=== PATIENT | female | born 1985 | race Caucasian/White ===

== ENCOUNTER 2017-02-19 17:26 | Emergency (ER) | payer OTHER ==
[~2017-02-19] VITALS: Ht 170.2 cm; Wt 59.0 kg
[2017-02-19 17:26] VITALS: BP 106/35
[2017-02-19] MEDS ORDERED: HYDROCODONE/APAP 5/325MG 1 EACH TABLET ONE (19:27)
[2017-02-19] MEDS ORDERED: HYDROCODONE/APAP 5/325MG 1 EACH TABLET PO ONE (19:30)
== END 2017-02-19 19:53 | disposition home or self-care (01) ==
LOC: ER 17:28
DX: S83.8X2A Sprain of other specified parts of left knee, initial encounter (principal); F10.20 Alcohol dependence, uncomplicated; W10.8XXA Fall (on) (from) other stairs and steps, initial encounter; Y93.89 Activity, other specified; Y92.89 Other specified places as the place of occurrence of the external cause; Y99.8 Other external cause status
CPT/HCPCS: 73564; 99284; A4606; Z7610

== ENCOUNTER 2017-06-11 08:13 | Emergency (ER) | payer OTHER ==
[~2017-06-11] VITALS: Ht 170.2 cm; Wt 59.0 kg
[2017-06-11 08:28] VITALS: BP 111/64
== END 2017-06-11 08:51 | disposition home or self-care (01) ==
LOC: ER 08:15
DX: T78.40XA Allergy, unspecified, initial encounter (principal); Y92.89 Other specified places as the place of occurrence of the external cause
CPT/HCPCS: A4606; Z7610

== ENCOUNTER 2018-10-25 12:55 | Emergency (ER) | payer OTHER ==
[~2018-10-25] VITALS: Ht 170.2 cm; Wt 61.2 kg
[2018-10-25 13:03] VITALS: BP 119/64
--- NOTE | 2018-10-25 13:24 | NUR ---
SEEN AND EXAMINED BY SHERIDAN LEMUS
[2018-10-25] MEDS ORDERED: DIAZEPAM 5 MG TABLET ONE (13:30)
[2018-10-25] MEDS ORDERED: DIAZEPAM 5 MG TABLET PO ONE (13:30)
--- NOTE | 2018-10-25 13:33 | NUR ---
TECH AT BEDSIDE FOR US.
--- NOTE | 2018-10-25 14:10 | NUR ---
Patient discharged to home in stable condition. Written and verbal after care instructions given. Patient verbalizes understanding of instruction.
== END 2018-10-25 14:11 | disposition home or self-care (01) ==
LOC: ER 12:57
DX: M79.651 Pain in right thigh (principal); F17.200 Nicotine dependence, unspecified, uncomplicated
CPT/HCPCS: 93971-TC; A6402

== ENCOUNTER 2019-02-15 11:18 | Emergency (ER) | payer OTHER ==
[~2019-02-15] VITALS: Ht 170.2 cm; Wt 67.6 kg
--- NOTE | 2019-02-15 11:35 | NUR ---
C/O LEFT HIP PAIN FOR 1 1/2 WEEKS, 04/07 PS, DENIES INJURY OR TRAUMA. PAIN ON AMBULATION. DENIES WEAKNESS, DIZZINESS. NO ACUTE DISTRESS NOTED, NO OTHER COMPLAINTS AT THIS TIME. PT MADE COMFORTABLE. READY FOR EVAL.
[2019-02-15] MEDS ORDERED: KETOROLAC TROMETHAMINE INJ 60 MG/2 ML VIAL IM ONE ×2 (11:37→12:00)
--- NOTE | 2019-02-15 11:57 | NUR ---
XRAY AT BEDSIDE
[2019-02-15 12:57] VITALS: BP 120/58
--- NOTE | 2019-02-15 12:57 | NUR ---
Patient discharged to home in stable condition. Written and verbal after care instructions given. Patient verbalizes understanding of instruction. AMBULATORY STEADY GAIT
== END 2019-02-15 12:58 | disposition home or self-care (01) ==
LOC: ER 11:18
DX: S76.012A Strain of muscle, fascia and tendon of left hip, initial encounter (principal); F17.200 Nicotine dependence, unspecified, uncomplicated; X58.XXXA Exposure to other specified factors, initial encounter; Y93.89 Activity, other specified; Y92.89 Other specified places as the place of occurrence of the external cause; Y99.8 Other external cause status
CPT/HCPCS: 73503; 84703; 96372; 99284; J1885; 73502

== ENCOUNTER 2020-12-10 03:45 | Emergency (ER) | payer OTHER ==
[~2020-12-10] VITALS: Ht 167.6 cm; Wt 67.6 kg
[2020-12-10 03:46] VITALS: BP 131/81
--- NOTE | 2020-12-10 04:38 | NUR ---
XRAY AT BEDSIDE
--- NOTE | 2020-12-10 05:01 | NUR ---
CALLED LEANDRA REGARDING XRAY
--- NOTE | 2020-12-10 05:32 | NUR ---
CALLED LEANDRA TO FOLLOW UP REGARDING READ FOR IMAGING.
--- NOTE | 2020-12-10 05:40 | NUR ---
Patient discharged in custody in stable condition. Written and verbal after care instructions given. Patient verbalizes understanding of instruction.
== END 2020-12-10 05:44 ==
LOC: ER 03:46
DX: R07.81 Pleurodynia (principal); Y08.89XA Assault by other specified means, initial encounter; Y93.89 Activity, other specified; Y92.89 Other specified places as the place of occurrence of the external cause; Y99.8 Other external cause status
CPT/HCPCS: 71100-TC

== ENCOUNTER 2021-04-19 15:04 | Emergency (ER) | payer OTHER ==
[~2021-04-19] VITALS: Ht 170.2 cm; Wt 61.2 kg
--- NOTE | 2021-04-19 15:29 | NUR ---
Frankie thomas in [facility] - 04/19/21 at 1612 by ELFEGO PT BIBS EPIGASTRIC PAIN,NAUSEA AND DIARRHEA X 1 WEEK. ALERT ORIENTED X4
--- NOTE | 2021-04-19 15:45 | NUR ---
PT BIBS ACCOMPANIED BY BOYFRIEND EPIGASTRIC PAIN,NAUSEA AND DIARRHEA X 1 WEEK. ALERT ORIENTED X 4 AMBULATORY.
--- NOTE | 2021-04-19 15:55 | NUR ---
URINE AND BLOOD COLLECTED AND SENT TO THE LAB.
[2021-04-19] MEDS ORDERED: MORPHINE SULFATE INJ 2 MG/ML DISP.SYRIN IV ONE ×2 (16:00→16:30)
[2021-04-19] MEDS ORDERED: MAG HYDROX/AL HYDROX/SIMETH 30 ML UDC PO ONE (16:00)
[2021-04-19] MEDS ORDERED: ONDANSETRON HCL/PF 4 MG/2 ML VIAL IVP ONE (16:00)
[2021-04-19] MEDS ORDERED: IV NS 0.9% 1,000 ML BAG IV ONE (16:00)
[2021-04-19] MEDS ORDERED: LIDOCAINE VISCOUS 2% UD 15 ML UDC MM ONE (16:00)
[2021-04-19 16:02] LABS: BASOPHILS % (AUTO) 0.5 % (0.0-2.0); EOSINOPHILS % (AUTO) 3.6 % (0.0-6.0); HEMATOCRIT 36 % (33-45); HEMOGLOBIN 12.4 g/dL (11.5-14.8); LYMPHOCYTES # (AUTO) 2.4 K/uL (0.8-4.8); LYMPHOCYTES % (AUTO) 33.3 % (20.0-44.0); MEAN CORPUSCULAR HGB CONC 34 g/dl (31.0-36.0); MEAN CORPUSCULAR VOLUME 89 fL (82-100); MONOCYTES # (AUTO) 0.7 K/uL (0.1-1.30); MONOCYTES % (AUTO) 9.4 % (2.0-12.0); NEUTROPHILS # (AUTO) 3.8 K/uL (1.8-8.9); NEUTROPHILS % (AUTO) 53.2 % (43.0-81.0); PLATELET COUNT (AUTO) 353 K/uL (150-450); RED BLOOD CELL COUNT(AUTO) 4.07 MIL/uL (4.0-5.2); WHITE BLOOD COUNT (AUTO) 7.1 K/uL (4.3-11.0)
[2021-04-19] MEDS ORDERED: ONDANSETRON HCL/PF 4 MG/2 ML VIAL ONE (16:04)
[2021-04-19] MEDS ORDERED: MORPHINE SULFATE INJ 4 MG/ML DISP.SYRIN ONE (16:04)
[2021-04-19] MEDS ORDERED: LIDOCAINE VISCOUS 2% UD 15 ML UDC ONE ×2 (16:05→16:19)
[2021-04-19] MEDS ORDERED: MAG HYDROX/AL HYDROX/SIMETH 30 ML UDC ONE ×2 (16:05→16:19)
[2021-04-19 16:09] LABS: BILIRUBIN,URINE NEGATIVE (NEGATIVE); COLOR,URINE YELLOW (YELLOW); LEUKOCYTE ESTERASE ,URINE NEGATIVE (NEGATIVE); NITRITE, URINE NEGATIVE (NEGATIVE); PH,URINE 7.5 (5.0-8.0); PROTEIN,URINE NEGATIVE (NEGATIVE); UGLUCOSE NEGATIVE (NEGATIVE); UROBILINOGEN,URINE 0.2 EU/dL (0.2)
[2021-04-19 16:18] LABS: CALCIUM, SERUM 8.6 mg/dL (8.5-10.1); POTASSIUM 3.5 mmol/L (3.5-5.1)
[2021-04-19 16:23] LABS: ALBUMIN 3.8 g/dL (3.4-5.0); BILIRUBIN,DIRECT 0.1 mg/dL (0.0-0.2); BILIRUBIN,TOTAL 0.2 mg/dL (0.2-1.0); TOTAL PROTEIN, SERUM 7.6 g/dL (6.4-8.2)
--- NOTE | 2021-04-19 16:30 | NUR ---
XYLOCAINE VISCOUS 2% 10 ML MAALOX SUSP UDC 30ML GIVEN PT STILL PRESENTS WITH EPIGASTRIC PAIN.
--- NOTE | 2021-04-19 16:31 | NUR ---
COVID NASAL SWAB DONE AND TAKEN TO LAB.
--- NOTE | 2021-04-19 16:45 | NUR ---
TAKEN TO BED 16.
--- NOTE | 2021-04-19 16:50 | NUR ---
ULTRASOUND BEING TAKEN.
[2021-04-19] MEDS ORDERED: ONDA4TAB5 PO (17:48)
[2021-04-19] MEDS ORDERED: TRAM50TA2 PO (17:48)
[2021-04-19] MEDS ORDERED: OMEP20TA5 PO (17:48)
[2021-04-19] MEDS ORDERED: ACET-2605 PO (17:48)
[2021-04-19 18:22] VITALS: BP 103/69
--- NOTE | 2021-04-19 18:22 | NUR ---
Patient discharged to home in stable condition. Written and verbal after care instructions given. Patient verbalizes understanding of instruction.
== END 2021-04-19 18:22 | disposition home or self-care (01) ==
LOC: ER 15:52
DX: R10.13 Epigastric pain (principal); R11.0 Nausea; Z20.822 Contact with and (suspected) exposure to COVID-19; R19.7 Diarrhea, unspecified
CPT/HCPCS: 36415; 76856; 80048; 80076; 81003; 83690; 84703; 85025; 87426; 96361; 96374; 96375; 99284; C9803; J2270; J2405; J7030